=== PATIENT | female | born 1960 | race Hispanic/Latino ===

== ENCOUNTER → 2018-07-24 | Outpatient (CLI) | payer BC | LOC: LAB.O 15:48 | PROVIDERS: ATTEND Nurse Practitioner Family | DX: R10.13 Epigastric pain (principal); R11.0 Nausea ==

== ENCOUNTER → 2018-08-05 | Outpatient (CLI) | payer BC ==
--- NOTE | 2018-08-04 11:06 | CT ---
EXAM DESCRIPTION: Abdomen/Pelvis w/o Contrast: Computed Tomography. CLINICAL HISTORY: KIDNEY STONES COMPARISON: None. TECHNIQUE: Spiral-axial scans at 2.5 x 2.5 mm intervals through the abdomen and pelvis. Coronal and sagittal 2.0mm reconstructions. No IV or oral contrast. Total Exam DLP: 1031.90 mGy-cm. This exam was performed according to our departmental CT dose-optimization program which includes automated exposure control, adjustment of the mA and/or kV according to patient size and/or use of iterative reconstruction technique; to reduce radiation dose to as low as reasonably achievable (ALARA). FINDINGS: Kidneys and Ureters: Normal size and density. No radiodense stones in the kidneys or ureters. No hydronephrosis or perinephric edema bilaterally. Normal caliber of the ureters with no periureteral edema. Pelvic Organs: No radiodense stones in the urinary bladder. Right pelvic calcification posterior to the right urinary bladder is anterior to the distal right ureter. Calcification on the external aspect of the left cervix. Normal position of uterus. No fluid in the cul-de-sac. Lung and pleura bases: Negative. Liver, spleen, stomach, and adrenal glands: Unremarkable. Pancreas, Gallbladder, Ducts: Negative. Aorta: Minimal calcification. Normal caliber of the outer wall. Small Bowel: Unremarkable. Terminal Ileum/Cecum: Normal caliber. Fecal material. Appendix negative. Normal density of the surrounding fat. Colon: Diffuse fecal material and no distention. Mesentery: Negative. Spine and Bony Pelvis: Multiple levels of endplate Schmorl's nodes or irregularities in the included thoracic spine and lumbar spine. Abdominal Wall/Back Soft Tissues: Unremarkable. IMPRESSION: 1. No radiodense stones in the bilateral kidneys or ureters, and none in the urinary bladder. No hydronephrosis or hydroureter bilaterally. 2. Normal CT appearance of the appendix. No free fluid or free air. No organomegaly. Borderline proximal constipation. Electronically signed by: Mike Howard MD 08/04/2018 11:04 AM NETWORK ACCOUNT MANAGER
== END ==
LOC: CT 08:00
PROVIDERS: ATTEND Family Medicine
DX: N20.0 Calculus of kidney (principal); K44.9 Diaphragmatic hernia without obstruction or gangrene

== ENCOUNTER 2018-09-02 06:10 | Day surgery (SDC) | payer BC ==
[2018-09-02] MEDS ORDERED: LIDOCAINE 1% 10 ML VIAL INJ ONE (10:00)
[2018-09-02] MEDS ORDERED: PROPOFOL 200 MG/20 ML VIAL IV ONE (10:00)
[2018-09-02] MEDS ORDERED: MIDAZOLAM INJ 2 MG/2 ML VIAL ONE (10:17)
[2018-09-02] MEDS ORDERED: LACTATED RINGERS 1,000 ML ONE (11:24)
--- NOTE | 2018-09-02 13:11 | OP ---
DATE OF PROCEDURE: 09/02/18 PREPROCEDURE DIAGNOSIS: 1. Screening for colorectal cancer. POSTPROCEDURE DIAGNOSIS: 1. Non-bleeding internal hemorrhoids. PROCEDURE: 1. Colonoscopy. SURGEON: Piotr Tello MD COMPLICATIONS: No immediate complications. SEDATION: The patient was sedated via IV propofol by the Anesthesia Department. CONSENT: Prior to the procedure, risks, benefits and alternatives to the therapy were discussed with the patient. The risks included bleeding, infection , perforation and . The patient agreed to the procedure and signed a consent. PREPROCEDURE ANESTHESIA ASSESSMENT: Mallampati class type 2, ASA grade assessment type 2. Throughout the procedure, the patient's blood pressure, pulse and oxygen saturation were closely monitored. PROCEDURE: The patient was placed in the left lateral decubitus position and a rectal examination was performed. The rectal examination was within normal limits. The Olympus colonoscope was passed in the anus, rectum, traversing the colon to the level of the cecum as identified by the appendiceal orifice. The scope was retracted and the mucosa was visualized. The entirety of the exam was performed under direct visualization. Retroflexion was performed in the rectum. Preparation quality was excellent. The withdrawal time was greater than 6 minutes. The patient tolerated the procedure well. FINDINGS: 1. Small non-bleeding internal hemorrhoids were found on retroflexion. 2. The entirety of the examination was unremarkable. IMPRESSION: 1. Non-bleeding internal hemorrhoids. RECOMMENDATION: 1. Return the patient home. 2. Resume previous diet. 3. Repeat colonoscopy in 10 years. 4. Primary care physician may check FIT/Cologuard in the subsequent 3 to 5 years. 5. The findings were discussed with the patient and family members. #[id number] [facility]
[2018-09-02 13:25] VITALS: BP 144/83; TEMP 97.6; O2SAT 96
== END 2018-09-02 13:15 | disposition home or self-care (01) ==
LOC: AMB 06:10
PROVIDERS: ATTEND Internal Medicine Gastroenterology
DX: Z12.11 Encounter for screening for malignant neoplasm of colon (principal); K64.8 Other hemorrhoids; I10 Essential (primary) hypertension; K21.9 Gastro-esophageal reflux disease without esophagitis; E78.00 Pure hypercholesterolemia, unspecified; I65.29 Occlusion and stenosis of unspecified carotid artery; Z79.82 Long term (current) use of aspirin; Z79.899 Other long term (current) drug therapy
CPT/HCPCS: 00812; 45378; J2250; J3490; J7120